=== PATIENT | female | born 1990 | race Caucasian/White ===

== ENCOUNTER 2018-12-30 11:44 | Emergency (ER) | payer OTHER ==
[2018-12-30] MEDS ORDERED: Acetaminophen 500 MG TAB PO ONE (12:02)
[2018-12-30] MEDS ORDERED: Acetaminophen 500 MG TAB ONE (12:06)
--- NOTE | 2018-12-30 13:55 | ED Physician Chart ---
ED Chief Complaint/HPI - Patient Information Date Seen:: 12/30/18 Time Seen:: 12:00 Chief Complaint:: r hand thumb pain fight History of Present Illness:: just prior Allergies:: Allergies Allergy/AdvReac Type Severity Reaction Status Date / Time No Known Allergies Allergy Verified 12/30/18 11:54 Vitals:: Vital Signs - 8 hr 12/30/18 11:54 Temp 99.8 F HR 108 RR 22 BP 106/77 O2 Sat % 95 ED Review of Systems - Review of Systems General/Constitutional: No fever Skin: No skin lesions Musculoskeletal: Bone or joint pain (from) ED Past Medical History - Past Medical History Past Medical History: No significant medical hx Family Medical History - Family Member Mother History Unknown: Yes ED Physical Exam - Physical Examination General/Constitutional: Well-developed, well-nourished, Alert, No distress ( using cell phone), Non-toxic appearing ED Labs/Radiology/EKG Results - Lab Results Results: tylenol given xray ordered ED Assessment - Assessment General Assessment: soft tissue swelling pt eloped prior to xray ED Septic Shock - . Is Septic Shock (SBP<90, OR Lactate>4 mmol\L) present?: No - <6hrs of presentation: Vital Signs: Vital Signs - 8 hr 12/30/18 11:54 Temp 99.8 F HR 108 RR 22 BP 106/77 O2 Sat % 95 ED Reassessment (Disposition) - Reassessment Reassessment Condition:: Unchanged - Patient Disposition Discharge/Transfer:: [facility]
== END 2018-12-30 12:15 | disposition left against medical advice (07) ==
LOC: ER 11:44
DX: M25.541 Pain in joints of right hand (principal); M79.89 Other specified soft tissue disorders
CPT/HCPCS: Z7502; Z7610